=== PATIENT | female | born 1945 | race Caucasian/White ===

== ENCOUNTER 2017-11-17 12:23 | Emergency (ER) | payer MEDICARE, OTHER ==
[~2017-11-17] VITALS: Ht 154.9 cm; Wt 104.3 kg
[~2017-11-17 12:23] MED LIST: ACET325 PO; ACET500 PO; ALBU.083IS IH; ALBU90OI6 INH; AMIT10 PO; AMLO5 PO; ASCO500 PO; ASPI325EC PO; Adipex-P37.5 MG; BIOTIN-D1 GM; BIOTIN2500 MCG PO; CALC.25; CALC.25 PO; CALCAVITD; CARBIDOPA PO; CHOL10002; CHOL10002 PO; CITA20 PO; CYAN1000 PO; DILT120 PO; DOCU100 PO; ERGO50000 PO; ESOM20; ESOM20 PO; FAMO20 PO; FAMO40 PO; FISH1000; FISH1000 PO; FOLI400 PO; HYDACE10B PO; LEVODOPA PO; LISHYD1012 PO; LISHYD2012 PO; MELA3; METTREX2.5; METTREX2.5 PO; MONT10T; MONT10T PO; Nitrostat0.4 MG SL; OMEPRAZOLE MAGN20 MG PO; PHENTERMINE 30 MG PO; PROZAC20 MG PO; QUALAQUIN PO; REMICADE INFUSION IV; STOMUL PO; SYMBACORT INH INH; TEMA30; UBID10; VITAMIN B12-FO1 EACH; Ventolin Soln3 ML INH; Verotin-Gr Cap1 EACH; Verotin-Gr Cap1 EACH PO
[2017-11-17] MEDS ORDERED: Prednisone20 MG PO (13:06)
== END 2017-11-17 13:26 | disposition home or self-care (01) ==
LOC: ER 12:23
DX: M54.41 Lumbago with sciatica, right side (principal); I10 Essential (primary) hypertension; J44.9 Chronic obstructive pulmonary disease, unspecified; Z87.891 Personal history of nicotine dependence; Z88.5 Allergy status to narcotic agent; Z88.8 Allergy status to other drugs, medicaments and biological substances; Z79.51 Long term (current) use of inhaled steroids; Z79.82 Long term (current) use of aspirin; Z79.899 Other long term (current) drug therapy
CPT/HCPCS: 96372; 99283; J1885

== ENCOUNTER 2017-11-26 14:38 | Inpatient (IN) | payer MEDICARE, OTHER ==
[~2017-11-26] VITALS: Ht 154.9 cm; Wt 104.1 kg
[~2017-11-26 14:38] MED LIST changes: +Prednisone20 MG PO
[2017-11-26 15:11] LABS: Source, Urine Clean Catch
[2017-11-26 15:17] LABS: BASOPHILS ABSOLUTE AUTO 0.03 K/mm3 (0.00-0.23); BASOPHILS PERCENT AUTO 0 % (0-2); EOSINOPHILS ABSOLUTE AUTO 0.14 K/mm3 (0.00-0.68); EOSINOPHILS PERCENT AUTO 1 % (0-6); Hematocrit 41.7 % (33.0-51.0); Hemoglobin 13.2 g/dL (11.5-16.0); IMMATURE GRAN ABSOLUTE AUTO 0.09 K/mm3 (0.00-0.10); IMMATURE GRAN PERCENT AUTO 1 % (0-1); LYMPHOCYTES PERCENT AUTO 6 % (21-46); MONOCYTES ABSOLUTE AUTO 0.51 K/mm3 (0.16-1.47); MONOCYTES PERCENT AUTO 4 % (4-13); Mean Corpuscular HGB 29.7 pg (26.0-34.0); Mean Corpuscular HGB Conc 31.7 g/dL (31.5-36.5); Mean Corpuscular Volume 94 fL (80-100); Mean Platelet Volume 10.2 fL (9.1-12.4); NEUTROPHILS PERCENT AUTO 88 % (41-73); Platelet Count 307 K/mm3 (150-400); RDW Coefficient Variation 15.7 % (11.7-14.2); RDW Standard Deviation 53.7 fL (35.1-46.3); Red Blood Cell Count 4.45 M/mm3 (3.80-5.20); White Blood Cell Count 12.57 K/mm3 (4.00-11.30)
[2017-11-26 15:19] LABS: Appearance, Urine Hazy (Clear); Bilirubin, Urine Neg (Neg); Blood, Urine 5+ (Neg); Color, Urine Yellow (P-Yellow); Glucose Qualitative, Urine Neg (Neg); Ketones, Urine Neg (Neg); Leukocyte Esterase, Urine 3+ (Neg); Nitrite, Urine Neg (Neg); Protein, Urine 1+ (Neg); Specific Gravity, Urine 1.015 (1.003-1.022); Urobilinogen, Urine NORM (Normal)
[2017-11-26 15:30] LABS: Bacteria Many /hpf; Squamous Epithelial Cells Mod /hpf (Few)
[2017-11-26 15:31] LABS: Albumin, Blood 2.3 g/dL (3.4-5.0); Albumin/Globulin Ratio 0.5 (0.8-1.8); Bilirubin, Total 0.7 mg/dL (0.1-1.0); Bun/Creatinine Ratio 35.2 (12.0-20.0); Calcium, Blood 9.6 mg/dL (8.5-10.1); Creatinine, Blood 1.22 mg/dL (0.40-1.00); Globulin, Blood 4.4 g/dL (2.2-4.0); Potassium, Blood 3.7 mmol/L (3.5-5.5); Total Protein, Blood 6.7 g/dL (6.4-8.2)
[2017-11-26 15:34] LABS: International Normalized Ratio 1.05; Prothrombin Time Results 10.9 Sec (9.7-11.5)
[2017-11-26] MEDS ORDERED: CLOB.05TO (18:54)
[2017-11-26] MEDS ORDERED: CYCL10 PO (18:55)
[2017-11-26] MEDS ORDERED: Prozac20 MG (18:56)
[2017-11-26] MEDS ORDERED: GABA100 PO (18:57)
[2017-11-26] MEDS ORDERED: HYDR-86 (19:01)
[2017-11-26] MEDS ORDERED: Phentermine HCl30 MG (19:03)
[2017-11-26] MEDS ORDERED: PREPLUS CA-FE1 EACH PO (19:05)
[2017-11-30] MEDS ORDERED: AMIT25 PO (14:34)
[2017-11-30] MEDS ORDERED: DOCU100 PO (14:35)
[2017-11-30] MEDS ORDERED: Gas Relief80 MG PO (14:37)
== END 2017-11-30 15:48 | disposition home or self-care (01) | DRG 871 ==
LOC: ER 14:38 → MEDS 18:18 → ENPENDDIS 11-30 10:00 → MEDS 11-30 15:48
PROVIDERS: Physician Assistant
DX: A41.9 Sepsis, unspecified organism (principal); G93.41 Metabolic encephalopathy; J44.9 Chronic obstructive pulmonary disease, unspecified; E86.0 Dehydration; B37.0 Candidal stomatitis; N39.0 Urinary tract infection, site not specified; R65.20 Severe sepsis without septic shock; R10.9 Unspecified abdominal pain; I10 Essential (primary) hypertension; Z98.84 Bariatric surgery status
CPT/HCPCS: 36415; 51701; 70450; 71046; 74018; 80053; 81001; 82550; 83605; 84484; 85025; 85610; 87040; 87077; 87086; 87186; 93005; 93010; 94640; 94760; 96365; 97110; 97116; 97162; 99285; C9113; G8978; G8979; J0696; J1650; J7030; J8610

== ENCOUNTER 2019-03-30 08:07 | Inpatient (IN) | payer MEDICARE, OTHER ==
[~2019-03-30] VITALS: Ht 154.9 cm; Wt 110.1 kg
[~2019-03-30 08:07] MED LIST changes: -ALBU90OI6 INH; +AMIT25 PO; -CHOL10002; +CLOB.05TO TOP; +CYCL10 PO; +Cartia Xt120 MG PO; -DILT120 PO; +GABA300 PO; +Gas Relief80 MG PO; +HYDR-86; -METTREX2.5; -MONT10T; +PREPLUS CA-FE1 EACH PO; +Phentermine HCl30 MG PO; +Prozac20 MG
[2019-03-30] MEDS ORDERED: Budesonide0.5 MG/2 M NEB (08:27)
[2019-03-30] MEDS ORDERED: LOSARTAN POTASS25 M2 PO (08:30)
[2019-03-30] MEDS ORDERED: CEPH500 (08:30)
[2019-03-30] MEDS ORDERED: ESOMEPRAZOLE MA40 MG PO (08:31)
[2019-03-30] MEDS ORDERED: CLON.1 PO (08:31)
[2019-03-30 09:06] LABS: BASOPHILS ABSOLUTE AUTO 0.03 K/mm3 (0.00-0.23); BASOPHILS PERCENT AUTO 0 % (0-2); EOSINOPHILS ABSOLUTE AUTO 0.08 K/mm3 (0.00-0.68); EOSINOPHILS PERCENT AUTO 1 % (0-6); Hematocrit 43.9 % (33.0-51.0); IMMATURE GRAN ABSOLUTE AUTO 0.03 K/mm3 (0.00-0.10); IMMATURE GRAN PERCENT AUTO 0 % (0-1); LYMPHOCYTES ABSOLUTE AUTO 1.72 K/mm3 (0.84-5.20); LYMPHOCYTES PERCENT AUTO 17 % (21-46); MONOCYTES PERCENT AUTO 8 % (4-13); Mean Corpuscular HGB 29.9 pg (26.0-34.0); Mean Corpuscular HGB Conc 31.9 g/dL (31.5-36.5); Mean Corpuscular Volume 94 fL (80-100); Mean Platelet Volume 10.2 fL (9.1-12.4); NEUTROPHILS ABSOLUTE AUTO 7.61 K/mm3 (1.96-9.15); NEUTROPHILS PERCENT AUTO 74 % (41-73); Platelet Count 256 K/mm3 (150-400); RDW Coefficient Variation 14.1 % (11.7-14.2); RDW Standard Deviation 46.9 fL (35.1-46.3); Red Blood Cell Count 4.69 M/mm3 (3.80-5.20); White Blood Cell Count 10.27 K/mm3 (4.00-11.30)
[2019-03-30 09:19] LABS: Albumin, Blood 3.5 g/dL (3.4-5.0); Albumin/Globulin Ratio 0.9 (0.8-1.8); Bilirubin, Total 0.8 mg/dL (0.1-1.0); Bun/Creatinine Ratio 18.3 (12.0-20.0); Calcium, Blood 8.9 mg/dL (8.5-10.1); Creatinine, Blood 0.98 mg/dL (0.40-1.00); Potassium, Blood 3.8 mmol/L (3.5-5.5); Total Protein, Blood 7.5 g/dL (6.4-8.2)
[2019-03-30] MEDS ORDERED: FOLI1 PO (12:44)
[2019-03-30] MEDS ORDERED: Ultram50 MG PO (12:47)
[2019-03-30] MEDS ORDERED: TEMA30 PO (12:49)
[2019-03-30] MEDS ORDERED: ALBU3IS NEB (12:51)
[2019-03-30] MEDS ORDERED: ALBU90OI6 INH (12:52)
[2019-03-30] MEDS ORDERED: OPTIMAL D350000 UNIT PO (13:40)
[2019-03-30] MEDS ORDERED: METTREX2.5 PO (13:41)
--- NOTE | 2019-03-30 19:16 | NUR ---
1850 RECEIVED PT TO 335 VIA GURNEY FROM ER. PT ABLE TO TX SELF TO BED. A&O. RECEIVED REPORT FROM FABBY KIRKPATRICK. 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 SIGNIFICANT WT LOSS WITH FIRST BYPASS WITH WT GAIN AFTER REPAIR. PT TO ER WITH C/O N/V X 4-5 DAYS D/T BOWEL OBSTRUCTION. PT ADMITTED TO WAIT FOR AVAILABLE BED AT [facility], [facility]. NGT PLACED BY RADIOLOGY TO [facility]. PER FABBY KIRKPATRICK, ONLY 50cc FROTHY SPUTUM LIKE FLUID OUT AFTER PLACEMENT; NO BILE APPEARING FLUID. FENTANYL 25 MCG GIVEN IN ER. IVF'S INFUSING TO RM @ 150cc/HR. PT REPORTED BACK PAIN AT 4/10 AFTER ADMISSION TO . SUCTION SET UP AND PILLOWS GIVEN FOR COMFORT. REPORT GIVEN TO KENY KIRKPATRICK.
[2019-03-30] MEDS ORDERED: MELATONIN5 M1 PO (21:10)
[2019-03-31 05:02] LABS: BASOPHILS ABSOLUTE AUTO 0.06 K/mm3 (0.00-0.23); BASOPHILS PERCENT AUTO 1 % (0-2); EOSINOPHILS ABSOLUTE AUTO 0.13 K/mm3 (0.00-0.68); EOSINOPHILS PERCENT AUTO 2 % (0-6); Hematocrit 41.1 % (33.0-51.0); Hemoglobin 12.8 g/dL (11.5-16.0); IMMATURE GRAN ABSOLUTE AUTO 0.02 K/mm3 (0.00-0.10); IMMATURE GRAN PERCENT AUTO 0 % (0-1); LYMPHOCYTES ABSOLUTE AUTO 2.06 K/mm3 (0.84-5.20); LYMPHOCYTES PERCENT AUTO 24 % (21-46); MONOCYTES PERCENT AUTO 8 % (4-13); Mean Corpuscular HGB 29.8 pg (26.0-34.0); Mean Corpuscular HGB Conc 31.1 g/dL (31.5-36.5); Mean Corpuscular Volume 96 fL (80-100); Mean Platelet Volume 10.2 fL (9.1-12.4); NEUTROPHILS ABSOLUTE AUTO 5.63 K/mm3 (1.96-9.15); NEUTROPHILS PERCENT AUTO 66 % (41-73); Platelet Count 235 K/mm3 (150-400); RDW Coefficient Variation 14.6 % (11.7-14.2); RDW Standard Deviation 49.2 fL (35.1-46.3)
[2019-03-31 05:28] LABS: Alanine Aminotransfer (ALT/SGP 16 U/L (12-78); Albumin, Blood 2.9 g/dL (3.4-5.0); Albumin/Globulin Ratio 0.8 (0.8-1.8); Alk Phos 65 U/L (50-136); Anion Gap 6 mmol/L (6-16); Aspartate Aminotrans (AST/SGOT 15 U/L (12-37); Bilirubin, Total 0.5 mg/dL (0.1-1.0); Blood Urea Nitrogen 19 mg/dL (8-24); CO2, Blood 22 mmol/L (21-32); Calcium, Blood 7.7 mg/dL (8.5-10.1); Chloride, Blood 115 mmol/L (98-108); Creatinine, Blood 0.87 mg/dL (0.40-1.00); Globulin, Blood 3.5 g/dL (2.2-4.0); Glomerular Filtration Rate >60 (60-); Glucose, Blood 76 mg/dL (70-99); Magnesium, Blood 2.4 mg/dL (1.6-2.4); Potassium, Blood 3.9 mmol/L (3.5-5.5); Sodium, Blood 143 mmol/L (136-145); Total Protein, Blood 6.4 g/dL (6.4-8.2)
--- NOTE | 2019-03-31 16:59 | NUR ---
PATIENT NARGIS TRANSFERED TO [facility] IN [place] FOR SURGERY. REPORT CALLED TO CASIMIRO CAMARENA. PATIENT WILL GO TO ROOM 668. TRANSFERRED VIA [facility]. MEDICATED WITH FENTANYL PRIOR TO TRANSFER AND PATIENT REPORTED GOOD PAIN RELIEF. PACKET GIVEN TO KINDERGARTEN AIDE. PATIENT DENIES ANY QUESTIONS OR CONCERNS.
== END 2019-03-31 16:57 | disposition short-term general hospital (02) | DRG 392 ==
LOC: ER 08:07 → MEDS 16:47 → ER 18:52 → MEDS 03-31 09:48
PROVIDERS: Emergency Medicine; ADMIT Family Medicine
PROC: 0D9670Z Drainage of Stomach with Drainage Device, Via Natural or Artificial Opening (ICD-10-PCS; principal; 2019-03-31)
DX: K44.0 Diaphragmatic hernia with obstruction, without gangrene (principal); Z68.41 Body mass index [BMI] 40.0-44.9, adult; K22.2 Esophageal obstruction; K21.9 Gastro-esophageal reflux disease without esophagitis; I10 Essential (primary) hypertension; J44.9 Chronic obstructive pulmonary disease, unspecified; E66.9 Obesity, unspecified; Z98.84 Bariatric surgery status; Z87.891 Personal history of nicotine dependence; Z88.5 Allergy status to narcotic agent; Z88.8 Allergy status to other drugs, medicaments and biological substances; Z79.899 Other long term (current) drug therapy
CPT/HCPCS: 36415; 74177; 74220; 76000; 80053; 83690; 83735; 85025; 93005; 93010; 94640; 94760; 96361; 96372; 96374-59; 96375; 96376; 99285-25; C9113; G0378; J0360; J1650; J2405; J3010; J7030; Q9963; Q9967

== ENCOUNTER 2022-01-29 14:37 | Emergency (ER) | payer MEDICARE, OTHER ==
[~2022-01-29] VITALS: Ht 154.9 cm; Wt 100.7 kg
[~2022-01-29 14:37] MED LIST changes: +ALBU3IS NEB; +ALBU90OI6 INH; +Budesonide0.5 MG/2 M NEB; +CEPH500; +CLON.1 PO; +ESOMEPRAZOLE MA40 MG PO; +FOLI1 PO; +LOSARTAN POTASS25 M2 PO; +MELATONIN5 M1 PO; +OPTIMAL D350000 UNIT PO; +TEMA30 PO; +Ultram50 MG PO
[2022-01-29 15:13] LABS: BASOPHILS ABSOLUTE AUTO 0.08 K/mm3 (0.00-0.23); BASOPHILS PERCENT AUTO 1 % (0-2); EOSINOPHILS ABSOLUTE AUTO 0.13 K/mm3 (0.00-0.68); EOSINOPHILS PERCENT AUTO 1 % (0-6); Hemoglobin 15.6 g/dL (11.5-16.0); IMMATURE GRAN ABSOLUTE AUTO 0.04 K/mm3 (0.00-0.10); IMMATURE GRAN PERCENT AUTO 0 % (0-1); LYMPHOCYTES ABSOLUTE AUTO 3.04 K/mm3 (0.84-5.20); LYMPHOCYTES PERCENT AUTO 22 % (21-46); MONOCYTES ABSOLUTE AUTO 0.98 K/mm3 (0.16-1.47); MONOCYTES PERCENT AUTO 7 % (4-13); Mean Corpuscular HGB 29.4 pg (26.0-34.0); Mean Corpuscular HGB Conc 31.8 g/dL (31.5-36.5); Mean Corpuscular Volume 93 fL (80-100); Mean Platelet Volume 10.2 fL (9.1-12.4); NEUTROPHILS ABSOLUTE AUTO 9.74 K/mm3 (1.96-9.15); NEUTROPHILS PERCENT AUTO 70 % (41-73); Platelet Count 306 K/mm3 (150-400); RDW Coefficient Variation 14.3 % (11.7-14.2); RDW Standard Deviation 48.5 fL (35.1-46.3); White Blood Cell Count 14.01 K/mm3 (4.00-11.30)
[2022-01-29 15:34] LABS: Albumin, Blood 3.9 g/dL (3.4-5.0); Albumin/Globulin Ratio 0.9 (0.8-1.8); Bilirubin, Total 0.7 mg/dL (0.1-1.0); Bun/Creatinine Ratio 18.7 (12.0-20.0); Calcium, Blood 10.7 mg/dL (8.5-10.1); Creatinine, Blood 1.5 mg/dL (0.40-1.00); Globulin, Blood 4.3 g/dL (2.2-4.0); Potassium, Blood 4.5 mmol/L (3.5-5.5); Total Protein, Blood 8.2 g/dL (6.4-8.2)
[2022-01-29 16:56] LABS: Influenza A, PCR NEGATIVE (NEGATIVE); Influenza B, PCR NEGATIVE (NEGATIVE); Resp Syncytial Virus, PCR NEGATIVE (NEGATIVE); SARS-Cov-2 (COVID-19) PCR, MMC NEGATIVE (NEGATIVE)
[2022-01-29 17:08] LABS: Source, Urine Clean Catch
[2022-01-29 17:16] LABS: Appearance, Urine Hazy (Clear); Bilirubin, Urine Neg (Neg); Blood, Urine 1+ (Neg); Color, Urine Yellow (P-Yellow); Glucose Qualitative, Urine Neg (Neg); Ketones, Urine Neg (Neg); Leukocyte Esterase, Urine 1+ (Neg); Nitrite, Urine Pos (Neg); Protein, Urine Neg (Neg); Specific Gravity, Urine 1.015 (1.003-1.022); Urobilinogen, Urine NORM (Normal)
[2022-01-29 17:40] LABS: Hyaline Casts 0-2 /lpf (0-2); Squamous Epithelial Cells Mod /hpf (Few)
[2022-01-29 17:41] LABS: Bacteria Many /hpf; Red Blood Cells, Urine 0-2 /hpf (0-2)
[2022-01-29] MEDS ORDERED: CEPH500 PO (21:43)
== END 2022-01-29 19:51 | disposition home or self-care (01) ==
LOC: ER 14:37
PROVIDERS: Physician Assistant
DX: R11.2 Nausea with vomiting, unspecified (principal); I10 Essential (primary) hypertension; J44.9 Chronic obstructive pulmonary disease, unspecified; Z96.652 Presence of left artificial knee joint; Z87.891 Personal history of nicotine dependence; Z20.822 Contact with and (suspected) exposure to COVID-19; Z79.899 Other long term (current) drug therapy
CPT/HCPCS: 0241U; 36415; 74177; 80053; 81001; 83605; 83690; 84484; 85025; J2405; J7030; Q9967

== ENCOUNTER 2023-05-17 20:05 | Inpatient (IN) | payer MEDICARE, OTHER ==
[~2023-05-17] VITALS: Ht 154.9 cm; Wt 108.4 kg
[~2023-05-17 20:05] MED LIST changes: +CEPH500 PO
[2023-05-17 20:32] LABS: BASOPHILS ABSOLUTE AUTO 0.06 K/mm3 (0.00-0.23); BASOPHILS PERCENT AUTO 0 % (0-2); EOSINOPHILS ABSOLUTE AUTO 0.07 K/mm3 (0.00-0.68); EOSINOPHILS PERCENT AUTO 0 % (0-6); Hematocrit 39.7 % (33.0-51.0); Hemoglobin 12.5 g/dL (11.5-16.0); IMMATURE GRAN ABSOLUTE AUTO 0.07 K/mm3 (0.00-0.10); IMMATURE GRAN PERCENT AUTO 0 % (0-1); LYMPHOCYTES PERCENT AUTO 13 % (21-46); MONOCYTES ABSOLUTE AUTO 1.16 K/mm3 (0.16-1.47); MONOCYTES PERCENT AUTO 6 % (4-13); Mean Corpuscular HGB 28.3 pg (26.0-34.0); Mean Corpuscular HGB Conc 31.5 g/dL (31.5-36.5); Mean Corpuscular Volume 90 fL (80-100); Mean Platelet Volume 10.5 fL (9.1-12.4); NEUTROPHILS ABSOLUTE AUTO 14.89 K/mm3 (1.96-9.15); NEUTROPHILS PERCENT AUTO 80 % (41-73); Platelet Count 216 K/mm3 (150-400); RDW Coefficient Variation 15.3 % (11.7-14.2); Red Blood Cell Count 4.42 M/mm3 (3.80-5.20); White Blood Cell Count 18.65 K/mm3 (4.00-11.30)
[2023-05-17 20:56] LABS: Albumin, Blood 2.9 g/dL (3.4-5.0); Albumin/Globulin Ratio 0.8 (0.8-1.8); Bilirubin, Total 0.5 mg/dL (0.1-1.0); Bun/Creatinine Ratio 18.2 (12.0-20.0); Calcium, Blood 8.4 mg/dL (8.5-10.1); Creatinine, Blood 1.37 mg/dL (0.40-1.00); Globulin, Blood 3.7 g/dL (2.2-4.0); Magnesium, Blood 2.5 mg/dL (1.6-2.4); Phosphorus, Blood 1.9 mg/dL (2.5-4.9); Potassium, Blood 4.5 mmol/L (3.5-5.5); Total Protein, Blood 6.6 g/dL (6.4-8.2)
[2023-05-17 21:36] LABS: Influenza A, PCR NEGATIVE (NEGATIVE); Influenza B, PCR NEGATIVE (NEGATIVE); Resp Syncytial Virus, PCR NEGATIVE (NEGATIVE); SARS-Cov-2 (COVID-19) PCR, MMC NEGATIVE (NEGATIVE)
[2023-05-18] MEDS ORDERED: ALPR.5 PO (02:19)
[2023-05-18] MEDS ORDERED: DILT120ERA PO (02:23)
[2023-05-18] MEDS ORDERED: DOXE10 PO (02:24)
[2023-05-18] MEDS ORDERED: Prozac20 MG PO (02:25)
[2023-05-18] MEDS ORDERED: VALS80 PO (02:26)
[2023-05-18 03:12] VITALS: BP 136/76
--- NOTE | 2023-05-18 05:24 | NUR ---
SHIFT SUMMARY ER ADMIN OVERNIGHT, PT A&O4, 3L NC NO O2 AT HOME, BEDREST DUE TO WEAKNESS IND AT BASELINE, VSS, NO COMPLAINTS OF PAIN AT THIS TIME, CONTINUE POC
[2023-05-18 07:35] VITALS: BP 149/88
[2023-05-18 09:25] LABS: Anti-Xa UFH, PHA Monitoring <0.10 IU/mL; International Normalized Ratio 1.05
[2023-05-18 11:18] LABS: BASOPHILS ABSOLUTE AUTO 0.05 K/mm3 (0.00-0.23); BASOPHILS PERCENT AUTO 0 % (0-2); EOSINOPHILS ABSOLUTE AUTO 0.24 K/mm3 (0.00-0.68); EOSINOPHILS PERCENT AUTO 2 % (0-6); Hematocrit 36.8 % (33.0-51.0); Hemoglobin 11.7 g/dL (11.5-16.0); IMMATURE GRAN ABSOLUTE AUTO 0.04 K/mm3 (0.00-0.10); IMMATURE GRAN PERCENT AUTO 0 % (0-1); LYMPHOCYTES ABSOLUTE AUTO 2.16 K/mm3 (0.84-5.20); LYMPHOCYTES PERCENT AUTO 15 % (21-46); MONOCYTES ABSOLUTE AUTO 0.98 K/mm3 (0.16-1.47); MONOCYTES PERCENT AUTO 7 % (4-13); Mean Corpuscular HGB 28.5 pg (26.0-34.0); Mean Corpuscular HGB Conc 31.8 g/dL (31.5-36.5); Mean Corpuscular Volume 90 fL (80-100); Mean Platelet Volume 10.5 fL (9.1-12.4); NEUTROPHILS ABSOLUTE AUTO 10.65 K/mm3 (1.96-9.15); NEUTROPHILS PERCENT AUTO 75 % (41-73); Platelet Count 184 K/mm3 (150-400); RDW Coefficient Variation 15.3 % (11.7-14.2); RDW Standard Deviation 49.7 fL (35.1-46.3); White Blood Cell Count 14.12 K/mm3 (4.00-11.30)
[2023-05-18 11:40] LABS: Albumin, Blood 2.6 g/dL (3.4-5.0); Albumin/Globulin Ratio 0.8 (0.8-1.8); Bilirubin, Total 0.5 mg/dL (0.1-1.0); Bun/Creatinine Ratio 15.7 (12.0-20.0); Calcium, Blood 8.1 mg/dL (8.5-10.1); Creatinine, Blood 1.21 mg/dL (0.40-1.00); Globulin, Blood 3.4 g/dL (2.2-4.0); Potassium, Blood 4.3 mmol/L (3.5-5.5)
--- NOTE | 2023-05-18 14:50 | NUR ---
PATIENT SHORT OF BREATH. CURRENT RESP RATE OF 33. SHE STATES "I JUST CANT CATCH MY BREATH." ASSISTED TO 90 DREGREES AND CALL PLACED RT FOR BREATHING TX, ALSO HOSPITALIST FOR ADDITIONAL RECOMMENDATIONS INDICATED. WILL CONT TO MONITOR.
[2023-05-18 15:43] VITALS: BP 95/52
--- NOTE | 2023-05-18 17:19 | NUR ---
SHIFT SUMMARY PATIENT ALERT AND ORIENTED, ABLE TO MAKE HER NEEDS KNOWN. SHE IS TACHYPNIC AND GETS VERY SHORT OF BREATH WITH MINIMAL ACTIVITY. HOB AT 90 DREGRESS, 3L O2 VIA NC, CONT BIOX. HEPARIN GTT RUNNING PER PHARMACY, NEXT LAB DRAW IS AT 2300. EDUCATED PATIENT ON PULMONARY EMBOLI AND CURRENT TREATMENT PLAN. PATIENT IS ANXIOUS TO RETURN HOME PRIOR TO HER 05/27 HEARING AID APPOINTMENT. BED LOW AND LOCKED, CALL LIGHT WITHIN REACH, WILL CONT TO MONITOR AND REPORT TO ONCOMING RN.
[2023-05-18 19:56] VITALS: BP 128/68
--- NOTE | 2023-05-19 04:58 | NUR ---
PT IS A&O4, 4L NC CONT SPO2 SATS LOW 90'S, UP WITH 1 TO BSC, PT GETS VERY SOB ON EXCERTION, HEPARIN RUNNING PER PHARMACY, VSS, NO COMPLAINTS OF PAIN OR ACUTE OVERNIGHT EVENTS, CONTINUE POC
[2023-05-19 05:32] VITALS: BP 127/51
[2023-05-19 05:36] LABS: Hematocrit 36.6 % (33.0-51.0); Hemoglobin 11.6 g/dL (11.5-16.0); Mean Platelet Volume 10.4 fL (9.1-12.4); Platelet Count 178 K/mm3 (150-400)
[2023-05-19 07:31] VITALS: BP 131/83
[2023-05-19 15:04] VITALS: BP 95/62
--- NOTE | 2023-05-19 17:31 | NUR ---
SHIFT SUMMARY PT A&OX4 AND PLEASANT. PT C/O FEELING SOB AND CHEST TIGHTNESS TODAY. DR KHAN AWARE AND ORDERS GIVEN FOR SOLUMEDRAL. PT REQUESTED RT TREATMENT AROUND NOON D/T FEELING SOB. AFTER LUNCH, PT ABLE TO REST FOR COUPLE HOURS. NO C/O PAIN. HEPARIN INFUSING AT 25.9ML/HR WITH NO RATE CHANGE TODAY. VSS. PT CONTINUES TO USE 3L OF OXYGEN AND MAINTIANS STRUATION ABOUT 95%. BED IN LOWEST POSITION AND CALL LIGHT IN REACH.
[2023-05-19 21:14] VITALS: BP 111/70
--- NOTE | 2023-05-20 05:00 | NUR ---
SHIFT SUMMARY PT IS A&O4, INDEPENDENT IN THE ROOM, RA, VSS, PT HAD NAUSEA WITH NO VOMITING THIS SHIFT, PRN ZOFRAN ORDERED PER MD GIVEN X1, NO ACUTE OVERNIGHT EVENTS CONTINUE POC
--- NOTE | 2023-05-20 05:03 | NUR ---
SHIFT SUMMARY PT IS A&O4, SB TO BSC, 3L NC CONT SPO2 SATS LOW TO MID 90'S, HEPARIN INFUSING 25.9CC/HR, VSS, NO COMPLAINTS OF PAIN OR ACUTE OVERNIGHT EVENTS, CONTINUE POC
[2023-05-20 05:23] VITALS: BP 141/95
[2023-05-20 05:40] LABS: Base Excess Venous -7.3 mmol/L; Bicarbonate Venous 19.4 mmol/L (24.0-30.0); PCO2 Venous 31.3 mmHg (38-42); pH Blood Venous 7.37 (7.34-7.37)
[2023-05-20 05:44] LABS: BASOPHILS ABSOLUTE AUTO 0.01 K/mm3 (0.00-0.23); BASOPHILS PERCENT AUTO 0 % (0-2); EOSINOPHILS PERCENT AUTO 0 % (0-6); Hematocrit 37.7 % (33.0-51.0); Hemoglobin 12.1 g/dL (11.5-16.0); IMMATURE GRAN ABSOLUTE AUTO 0.05 K/mm3 (0.00-0.10); IMMATURE GRAN PERCENT AUTO 1 % (0-1); LYMPHOCYTES ABSOLUTE AUTO 0.98 K/mm3 (0.84-5.20); LYMPHOCYTES PERCENT AUTO 9 % (21-46); MONOCYTES ABSOLUTE AUTO 0.08 K/mm3 (0.16-1.47); MONOCYTES PERCENT AUTO 1 % (4-13); Mean Corpuscular HGB 28.8 pg (26.0-34.0); Mean Corpuscular HGB Conc 32.1 g/dL (31.5-36.5); Mean Corpuscular Volume 90 fL (80-100); Mean Platelet Volume 10.5 fL (9.1-12.4); NEUTROPHILS ABSOLUTE AUTO 9.34 K/mm3 (1.96-9.15); NEUTROPHILS PERCENT AUTO 89 % (41-73); Platelet Count 200 K/mm3 (150-400); RDW Coefficient Variation 14.9 % (11.7-14.2); RDW Standard Deviation 49.1 fL (35.1-46.3); White Blood Cell Count 10.46 K/mm3 (4.00-11.30)
[2023-05-20 06:15] LABS: Bun/Creatinine Ratio 22.1 (12.0-20.0); Calcium, Blood 8.3 mg/dL (8.5-10.1); Creatinine, Blood 1.45 mg/dL (0.40-1.00); Potassium, Blood 5.3 mmol/L (3.5-5.5)
[2023-05-20 07:55] VITALS: BP 152/100
[2023-05-20 10:33] VITALS: BP 116/68
[2023-05-20 15:27] VITALS: BP 110/69
--- NOTE | 2023-05-20 18:13 | NUR ---
SHIFT SUMMARY PT A&OX4 AND PLEASANT. NO C/O PAIN. PT VERBALIZED FEELING THAT SHE WAS ABLE TO BREATH EAISER TODAY. HUMIDIFIER PLACED ON OXYGEN TO HELP DECREASE DRYNESS IN NARES, PER PT. HEPARIN DC'D TODAY AND ORDERS GIVEN FOR PO ELIQUIS. BP ELEVATED IN MORNING BUT WNL WHEN RECHECKED AND IN AFTERNOON. NO ACUTE CHANGES. BED IN LOWEST POSITION AND CALL LIGHT IN REACH.
[2023-05-20 20:45] VITALS: BP 121/64
--- NOTE | 2023-05-20 21:48 | NUR ---
PATIENT REQUEST BREATHING TX. RT ZAIRA NOTIFIED AND REPORTS 30-40 MINUTES OUT.
--- NOTE | 2023-05-20 22:47 | NUR ---
RT IN FOR BREATHING TX. PATIENT ON 3L O2 NC. WCTM
[2023-05-21 02:03] VITALS: BP 107/72
--- NOTE | 2023-05-21 04:03 | NUR ---
SHIFT SUMMARY PATIENT REPORTED SOB W/EXERTION. RT IN FOR BREATHING TX. ON 3L O2 NC STATING 92-96% ON CONTINUOUS PULSE OXIMETRY. SCHEDULE IV SOLU-MEDROL GIVEN PER EMAR. AXOX 4 AND SBA TO BS. PIV REMAINS INTACT. TELE MONITOR NSR 72. VSS/AFEBRILE. DENIES CHEST PAIN AND N/V. WATCHED TV FIRST PART OF SHIFT. COOPERATIVE WITH CARE. CALL LIGHT IN REACH. BED IN LOWEST POSITION. WILL CONTINUE TO MONITOR UNTIL DAY SHIFT NURSE ASSUMES CARE.
[2023-05-21 07:32] VITALS: BP 159/78
[2023-05-21] MEDS ORDERED: IPRAT-ALBUT 0.5-3 ML INH (15:41)
[2023-05-21] MEDS ORDERED: PRED20 PO (15:41)
[2023-05-21 15:47] VITALS: BP 134/67
--- NOTE | 2023-05-21 16:50 | NUR ---
Patient medically stable for discharge. RT home oxygen eval done. Oxygen delivered to room. Transitioned to PO prednisone today. Vitals stable. Patient left medical unit at 1650.
== END 2023-05-21 16:55 | disposition home or self-care (01) | DRG 175 ==
LOC: ER 20:05 → MEDS 05-18 00:45 → ENPENDDIS 05-21 15:43 → MEDS 05-21 16:55
PROVIDERS: Emergency Medicine; Internal Medicine; ADMIT Internal Medicine
DX: I26.99 Other pulmonary embolism without acute cor pulmonale (principal); J96.01 Acute respiratory failure with hypoxia; Z68.42 Body mass index [BMI] 45.0-49.9, adult; J44.1 Chronic obstructive pulmonary disease with (acute) exacerbation; I12.9 Hypertensive chronic kidney disease with stage 1 through stage 4 chronic kidney disease, or unspecified chronic kidney disease; L40.9 Psoriasis, unspecified; E66.9 Obesity, unspecified; I27.20 Pulmonary hypertension, unspecified; N18.32 Chronic kidney disease, stage 3b; I77.810 Thoracic aortic ectasia; R77.8 Other specified abnormalities of plasma proteins; Z20.822 Contact with and (suspected) exposure to COVID-19; Z96.652 Presence of left artificial knee joint; Z88.5 Allergy status to narcotic agent; Z88.8 Allergy status to other drugs, medicaments and biological substances; Z79.899 Other long term (current) drug therapy; Z87.19 Personal history of other diseases of the digestive system; Z98.84 Bariatric surgery status; Z90.710 Acquired absence of both cervix and uterus; Z90.49 Acquired absence of other specified parts of digestive tract; Z87.891 Personal history of nicotine dependence; Z98.890 Other specified postprocedural states; Z99.81 Dependence on supplemental oxygen
CPT/HCPCS: 0241U; 36415; 71045; 71046; 71260; 80048; 80053; 82803; 83735; 83880; 84100; 84145; 84484; 85014; 85018; 85025; 85049; 85379; 85520; 85610; 85730; 93005; 93010; 93306; 94640; 94664; 94760; 94761; 94762; 96365; 96375; 99285-25; A9270; J0456; J0696; J1644; J2930; J7050; J7060; Q9967

== ENCOUNTER → 2024-11-08 | Outpatient (CLI) | payer MEDICARE, OTHER ==
[~2024-11-08] MED LIST changes: +ALPR.5 PO; +DILT120ERA PO; +DOXE10 PO; +IPRAT-ALBUT 0.5-3 ML INH; +PRED20 PO; +Prozac20 MG PO; +VALS80 PO
[2024-11-08 10:05] LABS: Microalbumin, Urine Quant. 10.5 mg/L (0.000-20.000); Protein, Urine Quantitative 9.8 mg/dL (0.0-11.9)
== END ==
LOC: LAB SHORT 08:00 → LAB 08:00
PROVIDERS: Internal Medicine Nephrology
DX: N18.30 Chronic kidney disease, stage 3 unspecified (principal); D63.1 Anemia in chronic kidney disease
CPT/HCPCS: 81050; 82043; 82570; 84156

== ENCOUNTER 2024-12-06 09:51 | Emergency (ER) | payer MEDICARE, OTHER ==
[~2024-12-06] VITALS: Ht 154.9 cm; Wt 95.2 kg
[2024-12-06] MEDS ORDERED: Ipratropium/Albuterol SulF 2.5-0.5MG/3 ML Amp INH ONE (10:10)
[2024-12-06] MEDS ORDERED: MethylPREDNISolone Sod Succ 125 MG Vial IV ONE (10:10)
[2024-12-06 10:43] LABS: BASOPHILS ABSOLUTE AUTO 0.07 K/mm3 (0.00-0.23); BASOPHILS PERCENT AUTO 1 % (0-2); EOSINOPHILS ABSOLUTE AUTO 0.13 K/mm3 (0.00-0.68); EOSINOPHILS PERCENT AUTO 2 % (0-6); Hematocrit 38.1 % (33.0-51.0); Hemoglobin 12.1 g/dL (11.5-16.0); IMMATURE GRAN ABSOLUTE AUTO 0.06 K/mm3 (0.00-0.10); IMMATURE GRAN PERCENT AUTO 1 % (0-1); LYMPHOCYTES ABSOLUTE AUTO 1.71 K/mm3 (0.84-5.20); LYMPHOCYTES PERCENT AUTO 20 % (21-46); MONOCYTES PERCENT AUTO 8 % (4-13); Mean Corpuscular HGB 27.3 pg (26.0-34.0); Mean Corpuscular HGB Conc 31.8 g/dL (31.5-36.5); Mean Corpuscular Volume 86 fL (80-100); Mean Platelet Volume 9.9 fL (9.1-12.4); NEUTROPHILS ABSOLUTE AUTO 5.71 K/mm3 (1.96-9.15); NEUTROPHILS PERCENT AUTO 68 % (41-73); Platelet Count 309 K/mm3 (150-400); RDW Standard Deviation 46.9 fL (35.1-46.3); Red Blood Cell Count 4.44 M/mm3 (3.80-5.20); White Blood Cell Count 8.38 K/mm3 (4.00-11.30)
[2024-12-06 11:22] LABS: Albumin, Blood 2.9 g/dL (3.4-5.0); Albumin/Globulin Ratio 0.6 (0.8-1.8); Bilirubin, Total 0.6 mg/dL (0.1-1.0); Bun/Creatinine Ratio 23.5 (12.0-20.0); Calcium, Blood 9.8 mg/dL (8.5-10.1); Creatinine, Blood 1.19 mg/dL (0.40-1.00); Globulin, Blood 4.5 g/dL (2.2-4.0); Potassium, Blood 4.1 mmol/L (3.5-5.5); Total Protein, Blood 7.4 g/dL (6.4-8.2)
[2024-12-06] MEDS ORDERED: TRAM50 PO (11:31)
[2024-12-06] MEDS ORDERED: FUROSEMIDE20 MG PO (11:31)
[2024-12-06] MEDS ORDERED: CLON.2 PO (11:33)
[2024-12-06 11:47] LABS: CORONAVIRUS COVID-19 AG Negative (NEGATIVE); INFLUENZA A AG Negative (NEGATIVE); INFLUENZA B AG Negative (NEGATIVE)
[2024-12-06 13:00] VITALS: BP 181/91
[2024-12-06] MEDS ORDERED: Prednisone20 MG PO (13:07)
== END 2024-12-06 13:27 | disposition home or self-care (01) ==
LOC: ER 09:51
PROVIDERS: Emergency Medicine
DX: J44.1 Chronic obstructive pulmonary disease with (acute) exacerbation (principal); I10 Essential (primary) hypertension; N18.32 Chronic kidney disease, stage 3b; Z88.8 Allergy status to other drugs, medicaments and biological substances; Z88.5 Allergy status to narcotic agent; Z87.891 Personal history of nicotine dependence
CPT/HCPCS: 71045; 80053; 83880; 84484; 85025; 87428-QW; 93005; 93010; 94640; 94664; 96374; 99285-25; J2919

== ENCOUNTER 2025-01-31 21:25 | Inpatient (IN) | payer MEDICARE, OTHER ==
[~2025-01-31] VITALS: Ht 154.9 cm; Wt 97.7 kg
[~2025-01-31 21:25] MED LIST changes: +CLON.2 PO; +FUROSEMIDE20 MG PO; +TRAM50 PO
[2025-01-31 21:45] LABS: BASOPHILS ABSOLUTE AUTO 0.08 K/mm3 (0.00-0.23); BASOPHILS PERCENT AUTO 0 % (0-2); EOSINOPHILS ABSOLUTE AUTO 0.04 K/mm3 (0.00-0.68); EOSINOPHILS PERCENT AUTO 0 % (0-6); Hematocrit 35.7 % (33.0-51.0); Hemoglobin 11.2 g/dL (11.5-16.0); IMMATURE GRAN ABSOLUTE AUTO 0.09 K/mm3 (0.00-0.10); IMMATURE GRAN PERCENT AUTO 1 % (0-1); LYMPHOCYTES ABSOLUTE AUTO 2.44 K/mm3 (0.84-5.20); LYMPHOCYTES PERCENT AUTO 13 % (21-46); MONOCYTES ABSOLUTE AUTO 0.82 K/mm3 (0.16-1.47); MONOCYTES PERCENT AUTO 4 % (4-13); Mean Corpuscular HGB 26.8 pg (26.0-34.0); Mean Corpuscular HGB Conc 31.4 g/dL (31.5-36.5); Mean Corpuscular Volume 85 fL (80-100); Mean Platelet Volume 9.5 fL (9.1-12.4); NEUTROPHILS ABSOLUTE AUTO 15.86 K/mm3 (1.96-9.15); NEUTROPHILS PERCENT AUTO 82 % (41-73); Platelet Count 360 K/mm3 (150-400); RDW Coefficient Variation 17.3 % (11.7-14.2); RDW Standard Deviation 52.5 fL (35.1-46.3); Red Blood Cell Count 4.18 M/mm3 (3.80-5.20); White Blood Cell Count 19.33 K/mm3 (4.00-11.30)
[2025-01-31 22:02] LABS: Albumin, Blood 3.1 g/dL (3.4-5.0); Albumin/Globulin Ratio 0.8 (0.8-1.8); Bilirubin, Total 0.7 mg/dL (0.1-1.0); Bun/Creatinine Ratio 14.5 (12.0-20.0); Creatinine, Blood 1.24 mg/dL (0.40-1.00); Globulin, Blood 4.1 g/dL (2.2-4.0); Potassium, Blood 4.6 mmol/L (3.5-5.5); Total Protein, Blood 7.2 g/dL (6.4-8.2)
[2025-01-31] MEDS ORDERED: NS 1,000 ML IV SCH (23:25)
[2025-01-31 23:57] LABS: Magnesium, Blood 2.1 mg/dL (1.6-2.4); Phosphorus, Blood 4.3 mg/dL (2.5-4.9); Thyroid Stimulating Hormone 1.84 uIU/mL (0.360-4.800)
[2025-02-01 00:45] LABS: Influenza A, PCR NEGATIVE (NEGATIVE); Influenza B, PCR NEGATIVE (NEGATIVE); Resp Syncytial Virus, PCR NEGATIVE (NEGATIVE); SARS-Cov-2 (COVID-19) PCR, MMC NEGATIVE (NEGATIVE)
[2025-02-01 01:00] LABS: Source, Urine Clean Catch
[2025-02-01 01:05] LABS: Bilirubin, Urine Neg (Neg); Blood, Urine 3+ (Neg); Glucose Qualitative, Urine Neg (Neg); Ketones, Urine Neg (Neg); Leukocyte Esterase, Urine 3+ (Neg); Nitrite, Urine Pos (Neg); Protein, Urine 2+ (Neg); Urobilinogen, Urine 1+ (Normal)
[2025-02-01 01:14] LABS: Amorphous Light (0-Heavy); Appearance, Urine Hazy (Clear); Bacteria Mod /hpf; Color, Urine Yellow (P-Yellow); Mucus Light (0-Heavy); Squamous Epithelial Cells Rare /hpf (Few); WBC Cast 0-2 /lpf (0)
[2025-02-01 01:32] VITALS: BP 147/99
[2025-02-01 01:47] LABS: BASOPHILS ABSOLUTE AUTO 0.03 K/mm3 (0.00-0.23); BASOPHILS PERCENT AUTO 0 % (0-2); EOSINOPHILS PERCENT AUTO 0 % (0-6); Hematocrit 36.6 % (33.0-51.0); Hemoglobin 11.5 g/dL (11.5-16.0); IMMATURE GRAN ABSOLUTE AUTO 0.09 K/mm3 (0.00-0.10); IMMATURE GRAN PERCENT AUTO 1 % (0-1); LYMPHOCYTES ABSOLUTE AUTO 0.47 K/mm3 (0.84-5.20); LYMPHOCYTES PERCENT AUTO 3 % (21-46); MONOCYTES ABSOLUTE AUTO 0.23 K/mm3 (0.16-1.47); MONOCYTES PERCENT AUTO 1 % (4-13); Mean Corpuscular HGB 26.9 pg (26.0-34.0); Mean Corpuscular HGB Conc 31.4 g/dL (31.5-36.5); Mean Corpuscular Volume 86 fL (80-100); NEUTROPHILS ABSOLUTE AUTO 17.41 K/mm3 (1.96-9.15); NEUTROPHILS PERCENT AUTO 95 % (41-73); Platelet Count 323 K/mm3 (150-400); RDW Coefficient Variation 17.6 % (11.7-14.2); RDW Standard Deviation 53.1 fL (35.1-46.3); Red Blood Cell Count 4.28 M/mm3 (3.80-5.20); White Blood Cell Count 18.23 K/mm3 (4.00-11.30)
[2025-02-01 02:01] LABS: Anti-Xa UFH, PHA Monitoring <0.10 IU/mL; International Normalized Ratio 1.11; Prothrombin Time Results 12.1 Sec (9.7-11.5)
[2025-02-01 02:05] LABS: Albumin, Blood 2.8 g/dL (3.4-5.0); Albumin/Globulin Ratio 0.6 (0.8-1.8); Bilirubin, Total 0.8 mg/dL (0.1-1.0); Bun/Creatinine Ratio 15.9 (12.0-20.0); Calcium, Blood 9.1 mg/dL (8.5-10.1); Creatinine, Blood 1.32 mg/dL (0.40-1.00); Globulin, Blood 4.5 g/dL (2.2-4.0); Potassium, Blood 4.6 mmol/L (3.5-5.5); Total Protein, Blood 7.3 g/dL (6.4-8.2)
[2025-02-01] MEDS ORDERED: AMOX-CLAV 875-1 EAC5 PO (02:11)
[2025-02-01] MEDS ORDERED: MONDOXYNE NL100 MG PO (02:12)
[2025-02-01] MEDS ORDERED: Heparin Sodium,Porcine/0.5 NS 500 ML IV SCH (02:15)
[2025-02-01] MEDS ORDERED: Heparin Sodium 5000 Units/ML 1ML MDV IV ONE (02:15)
[2025-02-01] MEDS ORDERED: Ipratropium/Albuterol SulF 2.5-0.5MG/3 ML Amp INH SCH (02:40)
[2025-02-01 03:25] VITALS: BP 171/89
[2025-02-01] MEDS ORDERED: Albuterol 2.5 MG/3 ML VIAL INH PRN (03:25)
--- NOTE | 2025-02-01 07:37 | NUR ---
SHIFT SUMMARY: PT ARRIVES TO PCU 7 FROM THE ER VIA GURNEY AROUND 0100. PT TRANSFERS TO HOSPITAL BED X1 ASSIST. PT IS ORIENTED TO ROOM AND CALL LIGHT. PT IS A&OX4, PLEASANT AND COOPERATIVE WITH CARE. VSS ON 6L NC, TITRATED TO 3L NC, SATS >93%. SR 80'S. DENIES PAIN. HEPARIN GTT INFUSING PER ORDER. PT REMAINS NPO. VOIDED 200ML OF CONCENTRATED, YELLOW URINE IN BSC. NO BM THIS SHIFT. BRIEF IN PLACE, PT STATES SHE IS CONT/INCONTINENT. BED IN LOWEST POSITION, CALL LIGHT WITHIN REACH. BED ALARM SET FOR PT'S SAFETY.
[2025-02-01 08:06] VITALS: BP 176/96
[2025-02-01] MEDS ORDERED: Heparin Sodium 1000 Units/ML 10ML MDV ONE ×2 (08:40→10:14)
[2025-02-01] MEDS ORDERED: NS 250 ML IV ONE (08:40)
[2025-02-01] MEDS ORDERED: NS 2,000 ML IV ONE (08:40)
[2025-02-01] MEDS ORDERED: Enoxaparin 40 MG/0.4 ML SYR SC SCH (09:00)
[2025-02-01] MEDS ORDERED: MethylPREDNISolone Sod Succ 125 MG Vial IV SCH (09:00)
[2025-02-01] MEDS ORDERED: Midazolam HCl 1MG / ML 2ML Vial ONE (09:18)
[2025-02-01] MEDS ORDERED: FentaNYL Citrate 50 MCG/ML 2 ML Injection ONE (09:19)
[2025-02-01] MEDS ORDERED: HydrALAZINE HCl 20 MG / ML 1ML Vial ONE (09:29)
[2025-02-01] MEDS ORDERED: Labetalol HCL 5 MG/ML 4ML Injection (Single Dose) ONE (09:29)
[2025-02-01] MEDS ORDERED: Dose Adjust by Pharmacy XX STA (09:45)
[2025-02-01] MEDS ORDERED: NS 500 ML IV ONE (10:14)
[2025-02-01 11:10] LABS: Hematocrit 32.7 % (33.0-51.0)
[2025-02-01 13:31] VITALS: BP 151/97
--- NOTE | 2025-02-01 15:21 | NUR ---
Upon receiving a referral for spiritual care, I visited the patient. She tells me about her medical problems and the surgery he had this day to "remove blood clots in her legs." She tells me about her Che[employer] thalia, her family and the [facility] hospital[facility] unit complications. She states that she is very grateful for her gdtr, Rosenda, who has 5 kids yet manages to work very hard to help the patient with everything from mopping floors to bringing her needed items. The patient admitted to feeling anxious when her SOB becomes unmanagable. I normalize her experience, and provided therapeutic listening, gentle cancer genetic counselor and prayer. The patient responded well and showed signs of reduced stress. I will cotninue to remian available to the patient and the family.
[2025-02-01] MEDS ORDERED: CloNIDine 0.1 MG Tab PO PRN (16:00)
[2025-02-01 18:34] VITALS: BP 139/82
--- NOTE | 2025-02-01 19:28 | NUR ---
SHIFT SUMMARY PATIENT AOX4 ABLE TO MAKE NEEDS KNOWN. SHE DENIES CHEST PAIN. SHE IS ON NASAL CANNULA AT 3L. SHE HAD THROMBECTOMY TODAT THROUGH RIGHT GROIN SITE. THE SITE IS SOFT NO BRUISING OR HEMATOMA THERE IS A SMALL AMOUNT OF BLOOD UNDER THE DRESSING THAT IS UNCHANGED FOR THE DURATION OF THE SHIFT. THE PATIENT BLOOD PRESSURE WAS ELEVATED SBP IN THE 170s NOW IMPROVED WITH PRN BP MED. PATIENT TOLERATED POST OP VITALS AND HER FOOD NOW OFF BEDREST ABLE TO TRANSFER TO BEDSIDE COMMODE WITH A ONE PERSON ASSIST.
[2025-02-01] MEDS ORDERED: Doxepin HCL 10 MG CAP PO SCH (21:00)
[2025-02-01] MEDS ORDERED: CloNIDine HCl 0.2 MG Tab PO SCH (21:00)
[2025-02-01 21:33] VITALS: BP 141/68
[2025-02-01 22:19] LABS: Adenovirus F 40/41 Not Detected (NOT DETECT); Astrovirus Not Detected (NOT DETECT); Campylobacter Sp Not Detected (NOT DETECT); Cryptosporidium Not Detected (NOT DETECT); Cyclospora Cayetanensis Not Detected (NOT DETECT); E. Coli O157 Not Detected (NOT DETECT); Entamoeba Histolytica Not Detected (NOT DETECT); Enteroaggregative E. coli-EAEC Not Detected (NOT DETECT); Enteropathogenic E. coli-EPEC Not Detected (NOT DETECT); Enterotoxigenic E. coli-ETEC Not Detected (NOT DETECT); Giardia Lamblia Not Detected (NOT DETECT); Norovirus GI/GII Not Detected (NOT DETECT); Plesiomonas Shigelloides Not Detected (NOT DETECT); Rotavirus A Not Detected (NOT DETECT); Salmonella Sp Not Detected (NOT DETECT); Sapovirus Not Detected (NOT DETECT); Shiga Toxin-prod E. coli-STEC Not Detected (NOT DETECT); Shigella/Enteroin E. coli-EIEC Not Detected (NOT DETECT); Vibrio Cholerae Not Detected (NOT DETECT); Vibrio Sp Not Detected (NOT DETECT); Yersinia Enterocolitica Not Detected (NOT DETECT)
[2025-02-02] VITALS (7 sets, daily range): BP systolic 112–144; BP diastolic 62–87
[2025-02-02 01:18] LABS: BASOPHILS ABSOLUTE AUTO 0.01 K/mm3 (0.00-0.23); BASOPHILS PERCENT AUTO 0 % (0-2); EOSINOPHILS ABSOLUTE AUTO 0.01 K/mm3 (0.00-0.68); EOSINOPHILS PERCENT AUTO 0 % (0-6); Hematocrit 28.8 % (33.0-51.0); Hemoglobin 8.9 g/dL (11.5-16.0); IMMATURE GRAN ABSOLUTE AUTO 0.06 K/mm3 (0.00-0.10); IMMATURE GRAN PERCENT AUTO 0 % (0-1); LYMPHOCYTES ABSOLUTE AUTO 1.15 K/mm3 (0.84-5.20); LYMPHOCYTES PERCENT AUTO 9 % (21-46); MONOCYTES PERCENT AUTO 4 % (4-13); Mean Corpuscular HGB 26.3 pg (26.0-34.0); Mean Corpuscular HGB Conc 30.9 g/dL (31.5-36.5); Mean Corpuscular Volume 85 fL (80-100); Mean Platelet Volume 10.2 fL (9.1-12.4); NEUTROPHILS ABSOLUTE AUTO 11.67 K/mm3 (1.96-9.15); NEUTROPHILS PERCENT AUTO 87 % (41-73); Platelet Count 241 K/mm3 (150-400); RDW Coefficient Variation 17.5 % (11.7-14.2); Red Blood Cell Count 3.39 M/mm3 (3.80-5.20)
[2025-02-02] MEDS ORDERED: Dose Adjust by Pharmacy XX STA ×3 (01:53→13:32)
--- NOTE | 2025-02-02 07:12 | NUR ---
SHIFT SUMMARY: PT IS A&OX4, PLEASANT AND COOPERATIVE WITH CARE. VSS ON 3L NC, TITRATED TO RA, SATS >93%. SR 70'S-80'S. DENIES PAIN. HEPARIN GTT INFUSING PER ORDER. PT TOLERATING A HEART HEALTHY DIET. VOIDING SMALL AMOUNTS OF CONCENTRATED, YELLOW URINE IN BSC. PT WAS INCONTINENT OF URINE, BRIEF IN PLACE AND CHANGED NEEDED. THIS RN BLADDER SCANNED PT, SHE HAD 477 ML, SHE THEN WAS ABLE TO VOID 250ML. NO BM THIS SHIFT. R FEMORAL ACCESS SITE SOFT TO PALPATE, MILDLY TENDER, DRESSING WITH SMALL AMOUNT OF DRIED BLOOD. FREE FROM HEMATOMA OR BRUISING. BED IN LOWEST POSITION, CALL LIGHT WITHIN REACH. CALLS APPROPRIATELY AND IS ABLE TO ADVOCATE NEEDS EFFECTIVELY. ENTERIC PRECAUTIONS MAINTAINED.
--- NOTE | 2025-02-02 08:02 | NUR ---
ASSUMPTION OF CARE PATIENT IS AOX4 ABLE TO MAKE NEEDS KNOWN. SHE DENIES CHEST PAIN OR SOB. HER VITALS ARE STABLE AND SHE IS COMFORTABLE IN BED. HER CATH SITE IS UNCHANGED FROM YESTERDAY STILL SOFT NO HEMATOMA DISTAL PULSES ARE GOOD. THERE IS SOME BLOOD UNDER THE DRESSING THAT IS UNCHAGED FROM YESTERDAY. SHE IS CURRENTLY ON ROOM AIR SATTING GREATER THAN 92%.
[2025-02-02] MEDS ORDERED: dilTIAZem HCL 240 MG CAP.CD PO SCH (09:00)
[2025-02-02] MEDS ORDERED: Vancomycin HCl 125 MG Cap PO SCH (09:00)
[2025-02-02 09:04] LABS: Hematocrit 29.9 % (33.0-51.0); Hemoglobin 9.4 g/dL (11.5-16.0)
[2025-02-02 12:59] LABS: Hematocrit 30.6 % (33.0-51.0); Hemoglobin 9.3 g/dL (11.5-16.0)
[2025-02-02 18:21] LABS: Hematocrit 29.7 % (33.0-51.0); Hemoglobin 9.1 g/dL (11.5-16.0)
[2025-02-02 18:37] LABS: Percent Saturation 6.2 % (15.0-50.0)
--- NOTE | 2025-02-03 00:44 | NUR ---
SHIFT SUMMARY PT PLACED ON 2LNC FOR COMFORT AND TO PREVENT THE PATIENT FROM TIRING OUT. LUNGS SOUNDS CLEAR BUT PT LOOKED SOB WITHOUT EXERTION. PT REPORTS FEELING BETTER SINCE THE REMOVAL OF THE CLOT.
[2025-02-03 03:17] LABS: BASOPHILS ABSOLUTE AUTO 0.05 K/mm3 (0.00-0.23); BASOPHILS PERCENT AUTO 0 % (0-2); EOSINOPHILS ABSOLUTE AUTO 0.08 K/mm3 (0.00-0.68); EOSINOPHILS PERCENT AUTO 1 % (0-6); Hematocrit 26.8 % (33.0-51.0); Hemoglobin 8.3 g/dL (11.5-16.0); IMMATURE GRAN ABSOLUTE AUTO 0.03 K/mm3 (0.00-0.10); IMMATURE GRAN PERCENT AUTO 0 % (0-1); LYMPHOCYTES ABSOLUTE AUTO 3.42 K/mm3 (0.84-5.20); LYMPHOCYTES PERCENT AUTO 31 % (21-46); MONOCYTES ABSOLUTE AUTO 0.78 K/mm3 (0.16-1.47); MONOCYTES PERCENT AUTO 7 % (4-13); Mean Corpuscular HGB 26.6 pg (26.0-34.0); Mean Corpuscular Volume 86 fL (80-100); Mean Platelet Volume 10.2 fL (9.1-12.4); NEUTROPHILS ABSOLUTE AUTO 6.87 K/mm3 (1.96-9.15); NEUTROPHILS PERCENT AUTO 61 % (41-73); Platelet Count 240 K/mm3 (150-400); RDW Standard Deviation 54.8 fL (35.1-46.3); Red Blood Cell Count 3.12 M/mm3 (3.80-5.20); White Blood Cell Count 11.23 K/mm3 (4.00-11.30)
[2025-02-03 03:44] LABS: Bun/Creatinine Ratio 27.2 (12.0-20.0); Calcium, Blood 8.7 mg/dL (8.5-10.1); Creatinine, Blood 1.36 mg/dL (0.40-1.00); Potassium, Blood 4.4 mmol/L (3.5-5.5)
[2025-02-03] MEDS ORDERED: Dose Adjust by Pharmacy XX STA (03:53)
[2025-02-03 04:08] VITALS: BP 128/75
[2025-02-03 07:38] VITALS: BP 146/77
[2025-02-03] MEDS ORDERED: Iron Dextran 50 MG / ML 2ML Vial IV ONE (07:55)
[2025-02-03] MEDS ORDERED: Rivaroxaban 10 MG Tab PO SCH (07:57)
[2025-02-03] MEDS ORDERED: Iron Dextran 975 MG in NS 250 ML IV ONE (10:00)
[2025-02-03 10:41] LABS: Hematocrit 29.8 % (33.0-51.0); Hemoglobin 9.1 g/dL (11.5-16.0)
[2025-02-03 11:07] VITALS: BP 131/70
[2025-02-03 15:52] VITALS: BP 135/63
--- NOTE | 2025-02-03 17:36 | NUR ---
SHIFT SUMMARY PATIENT AOX4 ABLE TO MAKE NEEDS KNOWN. SHE DENIES AND CHEST PAIN. SHE DOES HAVE INTERMITTENT SOB SATTING GREATER THAN 95% ON 1.5L NC. SHE IS ABLE TO GET UP WITH A 1-2 ASSIST TO THE BEDSIDE COMMODE. SHE IS TOLERATING HER MEALS AND MEDICATIONS.
[2025-02-03 20:13] VITALS: BP 132/71
[2025-02-03 23:06] VITALS: BP 140/70
[2025-02-04 03:56] VITALS: BP 111/60
[2025-02-04 05:10] LABS: BASOPHILS ABSOLUTE AUTO 0.04 K/mm3 (0.00-0.23); BASOPHILS PERCENT AUTO 1 % (0-2); EOSINOPHILS ABSOLUTE AUTO 0.18 K/mm3 (0.00-0.68); EOSINOPHILS PERCENT AUTO 2 % (0-6); Hematocrit 26.5 % (33.0-51.0); Hemoglobin 7.9 g/dL (11.5-16.0); IMMATURE GRAN ABSOLUTE AUTO 0.03 K/mm3 (0.00-0.10); IMMATURE GRAN PERCENT AUTO 0 % (0-1); LYMPHOCYTES ABSOLUTE AUTO 2.92 K/mm3 (0.84-5.20); LYMPHOCYTES PERCENT AUTO 37 % (21-46); MONOCYTES ABSOLUTE AUTO 0.61 K/mm3 (0.16-1.47); MONOCYTES PERCENT AUTO 8 % (4-13); Mean Corpuscular HGB 26.3 pg (26.0-34.0); Mean Corpuscular HGB Conc 29.8 g/dL (31.5-36.5); Mean Corpuscular Volume 88 fL (80-100); Mean Platelet Volume 10.4 fL (9.1-12.4); NEUTROPHILS ABSOLUTE AUTO 4.23 K/mm3 (1.96-9.15); NEUTROPHILS PERCENT AUTO 53 % (41-73); Platelet Count 227 K/mm3 (150-400); RDW Coefficient Variation 17.9 % (11.7-14.2); RDW Standard Deviation 56.4 fL (35.1-46.3); White Blood Cell Count 8.01 K/mm3 (4.00-11.30)
--- NOTE | 2025-02-04 06:32 | NUR ---
SHIFT SUMMARY PT TRANSFERRED FROM PCU APPROX 0030. HERE WITH ACUTE HYPOXEMIC RESPIRATORY FAILURE SECONDARY TO MULTIPE PULMINARY EMBOLI WITH LIGHT HEART STRAIN. PT ON 1.5L O2 VIA NC. PT DENIES ANY PAIN OR DISCOMFORT AT THIS TIME. PT EXPECTED TO GO HOME IN AM. PT IS ON CONTACT ENTERIC PRECAUTIONS FOR POSITIVE C.DIFF INFECTION. URINE ALSO POSITIVE FOR E. COLI. PT IS PLEASANT AND COOPERATIVE WITH HER CARE. CURRENTLY IN BED, LIGHTS OUT, SLEEPING COMFORTABLY.
[2025-02-04 07:30] VITALS: BP 134/66
[2025-02-04 11:44] VITALS: BP 169/89
[2025-02-04] MEDS ORDERED: XARELTO10 M1 PO (12:04)
[2025-02-04] MEDS ORDERED: VANCOCIN HCL125 MG PO (12:05)
--- NOTE | 2025-02-04 14:35 | NUR ---
ASSUMED CARE OF PT. PT IS A/O VSS AWAITING DISCHARGE INSTRUCTION GIVEN, HOME O2 EVAL PREFORMED AND PASSED, PT DOESNT NEED HOME O2. PT INSTRUCTIONS GIVEN, IV DCED, UP IN CHAIR WAITING FOR RIDE.
== END 2025-02-04 13:54 | disposition home health service (06) | DRG 163 ==
LOC: ER 21:25 → ERHOLD 02-01 00:15 → PCU 02-01 00:15 → MEDS 02-04 00:27
PROVIDERS: Emergency Medicine; Internal Medicine; Student in an Organized Health Care Education/Training Program; ADMIT Internal Medicine
PROC: X2CY3T7 Extirpation of Matter from Great Vessel using Computer-aided Mechanical Aspiration, Percutaneous Approach, New Technology Group 7 (ICD-10-PCS; principal; 2025-02-01)
PROC: B31T1ZZ Fluoroscopy of Left Pulmonary Artery using Low Osmolar Contrast (ICD-10-PCS; 2025-02-01)
PROC: B31S1ZZ Fluoroscopy of Right Pulmonary Artery using Low Osmolar Contrast (ICD-10-PCS; 2025-02-01)
DX: I26.99 Other pulmonary embolism without acute cor pulmonale (principal); J96.01 Acute respiratory failure with hypoxia; J96.02 Acute respiratory failure with hypercapnia; A04.72 Enterocolitis due to Clostridium difficile, not specified as recurrent; J44.9 Chronic obstructive pulmonary disease, unspecified; I27.20 Pulmonary hypertension, unspecified; I12.9 Hypertensive chronic kidney disease with stage 1 through stage 4 chronic kidney disease, or unspecified chronic kidney disease; K22.89 Other specified disease of esophagus; Z66 Do not resuscitate; N18.32 Chronic kidney disease, stage 3b; E66.9 Obesity, unspecified; F32.A Depression, unspecified; I77.819 Aortic ectasia, unspecified site; L40.9 Psoriasis, unspecified; I44.4 Left anterior fascicular block; Z90.710 Acquired absence of both cervix and uterus; Z90.49 Acquired absence of other specified parts of digestive tract; Z98.890 Other specified postprocedural states; Z82.49 Family history of ischemic heart disease and other diseases of the circulatory system; Z86.711 Personal history of pulmonary embolism; Z99.81 Dependence on supplemental oxygen; Z88.8 Allergy status to other drugs, medicaments and biological substances; Z88.5 Allergy status to narcotic agent; Z79.52 Long term (current) use of systemic steroids; Z98.84 Bariatric surgery status; Z96.653 Presence of artificial knee joint, bilateral; Z87.891 Personal history of nicotine dependence; Z79.899 Other long term (current) drug therapy; Z68.39 Body mass index [BMI] 39.0-39.9, adult
CPT/HCPCS: 0241U; 36415; 37184; 71046; 71260; 74177; 75743; 76937; 80048; 80053; 81001; 82728; 83540; 83550; 83605; 83735; 84100; 84443; 84484; 85014; 85018; 85025; 85347; 85520; 85610; 87077; 87086; 87186; 87324; 87507; 93005; 93010; 93306; 94640; 94664; 94760; 94761; 94762; 97110; 97116; 97162; 97165; 97530; 97535; 99152; 99153; 99285-25; A9270; C1757; C1769; C1894; J0360; J1644; J1750; J2250; J2919; J3010; J7030; J7040; J7050; Q9967